=== PATIENT | male | born 1970 | race African-American/Black ===

== ENCOUNTER 2016-11-13 17:55 | Emergency (ER) | payer OTHER ==
[~2016-11-13] VITALS: Ht 172.7 cm; Wt 108.9 kg
[2016-11-13] MEDS ORDERED: KETOROLAC TROMETHAMINE INJ 60 MG/2 ML VIAL IM ONE (18:30)
[2016-11-13] MEDS ORDERED: CYCLOBENZAPRINE 10 MG TABLET PO ONE (18:30)
[2016-11-13] MEDS ORDERED: CYCLOBENZAPRINE 10 MG TABLET ONE (18:39)
[2016-11-13] MEDS ORDERED: KETOROLAC TROMETHAMINE INJ 30 MG/ML VIAL ONE (18:39)
[2016-11-13] MEDS ORDERED: AMLODIPINE BESYLATE 5 MG TABLET ONE (19:15)
[2016-11-13] MEDS ORDERED: AMLODIPINE BESYLATE 5 MG TABLET PO ONE (19:30)
[2016-11-13 20:38] VITALS: BP 152/90
== END 2016-11-13 20:41 ==
LOC: ER 17:59
DX: S16.1XXA Strain of muscle, fascia and tendon at neck level, initial encounter (principal); I10 Essential (primary) hypertension; X58.XXXA Exposure to other specified factors, initial encounter; Y92.89 Other specified places as the place of occurrence of the external cause; Y93.89 Activity, other specified; Y99.8 Other external cause status
CPT/HCPCS: 96372; 99283; A4606; J1885; Z7610

== ENCOUNTER 2021-05-17 23:56 | Emergency (ER) | payer OTHER ==
[~2021-05-17] VITALS: Ht 175.3 cm; Wt 70.3 kg
--- NOTE | 2021-05-18 00:05 | NUR ---
TO ER BED REQUESTING MEDICAL CLEARANCE FOR VOLUNTARY PSYCH ADMISSION. PT C/O SI WITHOUT PLAN. "I'M HEARING VOICES TELLING ME TO HURT MYSELF." PT AAOX4 NO ACUTE DISTRESS NOTED, RESP EVEN AND UNLABORED. PT CALM AND COOPERATIVE AT THIS TIME. PENDING ER MD TORRES.
--- NOTE | 2021-05-18 02:09 | NUR ---
URINE SAMPLE COLLECTED AND SENT TO LAB
--- NOTE | 2021-05-18 02:15 | NUR ---
BLOOD DRAWN BY ENVIRONMENTAL HEALTH AND SAFETY LEADER.
[2021-05-18 02:20] LABS: BILIRUBIN,URINE SMALL (NEGATIVE); COLOR,URINE YELLOW (YELLOW); LEUKOCYTE ESTERASE ,URINE Negative (NEGATIVE); NITRITE, URINE Negative (NEGATIVE); PH,URINE 5.5 (5.0-8.0); PROTEIN,URINE Trace mg/dl (NEGATIVE); UGLUCOSE Negative (NEGATIVE); UROBILINOGEN,URINE 0.2 EU/dL (0.2)
[2021-05-18 02:31] LABS: BACTERIA,URINE Few /HPF (None Seen); HYALINE CASTS, URINE Few /LPF (None Seen); MUCUS,URINE Few /LPF (None Seen); SQUAMOUS EPITHELIAL CELL,UR Few /HPF (None Seen); WBC,URINE 0-2 /HPF (0-3)
[2021-05-18 02:43] LABS: BASOPHILS % (AUTO) 0.8 % (0.0-2.0); EOSINOPHILS % (AUTO) 1.2 % (0.0-6.0); HEMATOCRIT 40 % (39-51); LYMPHOCYTES # (AUTO) 1.7 K/uL (0.8-4.8); LYMPHOCYTES % (AUTO) 30.6 % (20.0-44.0); MEAN CORPUSCULAR HGB CONC 33 g/dl (31.0-36.0); MEAN CORPUSCULAR VOLUME 81 fL (80-96); MONOCYTES # (AUTO) 0.5 K/uL (0.1-1.30); MONOCYTES % (AUTO) 8.1 % (2.0-12.0); NEUTROPHILS # (AUTO) 3.4 K/uL (1.8-8.9); NEUTROPHILS % (AUTO) 59.3 % (43.0-81.0); PLATELET COUNT (AUTO) 370 K/uL (150-450); RED BLOOD CELL COUNT(AUTO) 4.91 MIL/uL (4.5-6.0); WHITE BLOOD COUNT (AUTO) 5.7 K/uL (4.3-11.0)
[2021-05-18 02:51] LABS: ALANINE AMINOTRANSFERASE 24 U/L (12-78); ALBUMIN 3.9 g/dL (3.4-5.0); ALCOHOL, BLOOD < 3 mg/dL (0-0); ALKALINE PHOSPHATASE 77 U/L (46-116); ASPARTATE AMINOTRANSFERASE 26 U/L (15-37); BILIRUBIN,DIRECT 0.1 mg/dL (0.0-0.2); BILIRUBIN,TOTAL 0.3 mg/dL (0.2-1.0); CALCIUM, SERUM 9.5 mg/dL (8.5-10.1); CARBON DIOXIDE 29 mmol/L (21-32); CHLORIDE 104 mmol/L (98-107); CREATININE 1.5 mg/dL (0.6-1.3); GLUCOSE 96 mg/dL (74-106); POTASSIUM 4.4 mmol/L (3.5-5.1); SODIUM SERUM 143 mmol/L (136-145); UREA NITROGEN, BLOOD 24 mg/dL (7-18)
[2021-05-18 03:01] LABS: ACETAMINOPHEN < 2 ug/ml (10-30)
--- NOTE | 2021-05-18 04:06 | NUR ---
CLINICAL AND FACESHEET FAXED TO [facility] INTAKE FOR VOLUNTARY PSYCH ADMISSION.
--- NOTE | 2021-05-18 07:02 | NUR ---
PER ART FROM INTAKE AT [facility] PT IS ACCEPTED AND WILL CALL BACK FOR BED AND ACCEPTING MD AFTER 0800AM
--- NOTE | 2021-05-18 09:17 | NUR ---
CALLED [facility] FOR TRANSPORT TO [facility]. ETA 60 MINUTES.
--- NOTE | 2021-05-18 09:21 | NUR ---
JAKY FROM [facility] CALLED TO ASK IF WE CAN SENT PATIENT AFTER 11 AM. STATED TO JAKY THAT AMBULANCE WAS ENROUTE TO [employer] PATIENT BUT WILL BE HERE CLOSER TO 10 AM FOR PICKUP. PER JAKY OKAY TO ADMIT AT 10AM.
[2021-05-18 09:45] VITALS: BP 116/65
== END 2021-05-18 10:02 ==
LOC: ER 05-18 00:02
DX: F31.9 Bipolar disorder, unspecified (principal); R45.851 Suicidal ideations; Z59.0 Homelessness; H91.90 Unspecified hearing loss, unspecified ear; I10 Essential (primary) hypertension; Z82.49 Family history of ischemic heart disease and other diseases of the circulatory system; Z20.822 Contact with and (suspected) exposure to COVID-19; R79.89 Other specified abnormal findings of blood chemistry; F41.9 Anxiety disorder, unspecified
CPT/HCPCS: 36415; 80048; 80076; 80143; 80307; 80320; 81001; 85025; 87426; 99285; C9803; G0480

== ENCOUNTER 2021-06-20 19:58 | Emergency (ER) | payer OTHER ==
[~2021-06-20] VITALS: Ht 175.3 cm; Wt 72.6 kg
--- NOTE | 2021-06-20 20:19 | NUR ---
DEPRESSED, WANTS TO BE ADMITTED TO [facility]
--- NOTE | 2021-06-20 20:27 | NUR ---
LAB AT BEDSIDE
[2021-06-20] MEDS ORDERED: LORAZEPAM INJ 2 MG/ML VIAL IM ONE (20:30)
[2021-06-20] MEDS ORDERED: LORAZEPAM INJ 2 MG/ML VIAL ONE (20:34)
--- NOTE | 2021-06-20 20:40 | NUR ---
PT NOTED WITH RESTLESSNESS AND TALKING TO SELF
--- NOTE | 2021-06-20 20:52 | NUR ---
BP 194/112 HR 86 NOTIFIED LAW MD
--- NOTE | 2021-06-20 20:55 | NUR ---
ENCOURAGED PT TO URINATE TO COLLECT SAMPLE; NOT ABLE TO GO AT THIS MOMENT. WILL TRY AGAIN LATER
--- NOTE | 2021-06-20 21:02 | NUR ---
COVID SWAB COLELCTED AND SENT TO LAB
[2021-06-20 21:12] LABS: BASOPHILS # (AUTO) 0.1 K/uL (0.0-0.2); BASOPHILS % (AUTO) 1.1 % (0.0-2.0); EOSINOPHILS % (AUTO) 1.6 % (0.0-6.0); HEMATOCRIT 36 % (39-51); HEMOGLOBIN 11.5 g/dL (13.5-17.5); LYMPHOCYTES # (AUTO) 1.6 K/uL (0.8-4.8); LYMPHOCYTES % (AUTO) 30.9 % (20.0-44.0); MEAN CORPUSCULAR HGB CONC 32 g/dl (31.0-36.0); MEAN CORPUSCULAR VOLUME 81 fL (80-96); MONOCYTES # (AUTO) 0.4 K/uL (0.1-1.30); MONOCYTES % (AUTO) 8.8 % (2.0-12.0); NEUTROPHILS # (AUTO) 2.9 K/uL (1.8-8.9); NEUTROPHILS % (AUTO) 57.6 % (43.0-81.0); PLATELET COUNT (AUTO) 286 K/uL (150-450); RED BLOOD CELL COUNT(AUTO) 4.44 MIL/uL (4.5-6.0); WHITE BLOOD COUNT (AUTO) 5.1 K/uL (4.3-11.0)
[2021-06-20] MEDS ORDERED: CLONIDINE HCL 0.1 MG TABLET ONE (21:13)
[2021-06-20 21:24] LABS: CALCIUM, SERUM 8.6 mg/dL (8.5-10.1); CARBON DIOXIDE 31 mmol/L (21-32); CHLORIDE 105 mmol/L (98-107); CREATININE 0.9 mg/dL (0.6-1.3); GLUCOSE 84 mg/dL (74-106); POTASSIUM 3.7 mmol/L (3.5-5.1); SODIUM SERUM 140 mmol/L (136-145); UREA NITROGEN, BLOOD 14 mg/dL (7-18)
[2021-06-20 21:28] LABS: ALANINE AMINOTRANSFERASE 20 U/L (12-78); ALBUMIN 3.7 g/dL (3.4-5.0); ALKALINE PHOSPHATASE 73 U/L (46-116); ASPARTATE AMINOTRANSFERASE 24 U/L (15-37); BILIRUBIN,DIRECT 0.1 mg/dL (0.0-0.2); BILIRUBIN,TOTAL 0.4 mg/dL (0.2-1.0); TOTAL PROTEIN, SERUM 7.1 g/dL (6.4-8.2)
[2021-06-20 21:29] LABS: ALCOHOL, BLOOD < 10 mg/dL (0-0)
[2021-06-20] MEDS ORDERED: CLONIDINE HCL 0.1 MG TABLET PO ONE (21:30)
--- NOTE | 2021-06-20 22:18 | NUR ---
URINE SAMPLE COLLECTED AND SENT TO LAB
[2021-06-20 22:53] LABS: BILIRUBIN,URINE NEGATIVE (NEGATIVE); COLOR,URINE YELLOW (YELLOW); LEUKOCYTE ESTERASE ,URINE NEGATIVE (NEGATIVE); NITRITE, URINE NEGATIVE (NEGATIVE); PROTEIN,URINE NEGATIVE (NEGATIVE); UGLUCOSE NEGATIVE (NEGATIVE); UROBILINOGEN,URINE 0.2 EU/dL (0.2)
[2021-06-20 23:34] LABS: BACTERIA,URINE None seen /HPF (None Seen); RBC,URINE 0-2 /HPF (0-2); SQUAMOUS EPITHELIAL CELL,UR Few /HPF (None Seen); URINE AMORPHOUS PHOSPHATES Many /HPF (None Seen); WBC,URINE 0-2 /HPF (0-3)
--- NOTE | 2021-06-21 07:51 | NUR ---
ASSESSED PT ON BED AWAKE AND ALERT, NOT IN RESPIRATORY DISTRESS, V/S STABLE, KEPT RESTED AND COMFORTABLE. WILL CONTINUE TO MONITOR.
--- NOTE | 2021-06-21 10:30 | NUR ---
"SS note SS requested for pt with complaints of feeling depressed and requesting voluntary psychiatric admission. Pt is a 51-year-old, male. Per chart, pt is homeless. SW met with pt at his bedside in the emergency department. Pt was unarousable. Pt appeared appropriately dressed and well-groomed. SW notified RN Rosalina and was instructed to file homeless resources and homeless waiver in the pt's chart. PLAN: Per pt request for voluntary psychiatric admission, [facility] faxed clinicals to [facility], , for review. SW will remain available as needed. RESOURCES FILED: Year-round shelters: [facility] [place] [address] [place] [address] ; [facility] [place] [address] [place] [address]; [facility] [id number] [facility] [address] SPA 4 | [facility] Provider: [facility] Serve Address: [address], [address] # of Beds: 48 Population Served: [facility] Provider: First to Serve Address: [address] [facility], [address] # of Beds: 73 Population Served: [facility] 6 | [facility] Provider: [facility] Address: [address] [place] [address], [address] # of Beds: 63 Population Served: [facility] 3 | [facility] Provider: [facility] [place] Address: [address] [place] [address], [address] # of Beds: 75 Population Served: [facility] SPA 8 | [facility] Provider: [facility] [place] Address: [address] [facility], [address] # of Beds: 80 Population Served: [facility] SPA 1 | [facility] Provider: [facility] [place] [place] Address: [address] [place] [address], [address] # of Beds: 85 Population Served: [facility] SPA 2 | [facility] Provider: Ondina Julian Address: Confidential (please call for location) # of Beds: 52 Population Served: [facility] 4 | [facility] Provider: Mayank Donnelly Address: [address] [facility] [facility], [address] # of Beds: 49 Population Served: [facility] Provider: First To Serve Address: [address] [place] [address], [address] # of Beds: 27 Population Served: [facility] Hygiene: [facility]: [address] [facility] ; [facility] [address] [facility] ; [facility] [address] [place] . Food Resources: [place] [facility] at [facility]- [address] [facility]; Meet Each Need with Dignity ([facility]) [address] [facility]; [facility] Food Pantry [address] [facility]; [facility] [address] [facility]. Mental Health resources provided: [facility] [address] [place], [place] [id number] ; [facility] [address] [facility] [address], [place] [address] ; Azra [facility]ung [facility] [address] [address] [place], [place] [id number] ; [facility] [address] [place], [place] [phone] Healthcare Clinics: [facility] [address] [facility], [address] [place]. [place] ; [facility] [address] [facility] [address] [place] [address]; [facility] [address] [facility]. [place] [address] [phone] Counseling--Outpatient [facility] [address] [facility] [address] [place], [place] [address] (Specializes in in-depth psychotherapy for emotional distress: anxiety, depression, interpersonal conflicts, life transitions, childhood abuse) PSYCHIATRIC OUTPATIENT SERVICES [facility] Partial Hospitalization and Intensive Outpatient Program (Managed Care and [place] Only) [address] [facility] [address] [facility] Partial Hospitalization and Outpatient Program [address] [place] [address] [facility] Partial Hospitalization and Outpatient Program [address] [place], [place] [id number] [facility] [address] [facility] [address] [place], [place] [phone] [facility] Partial Hospitalization and Outpatient Program [address] [place], [place] [phone] Substance use resources provided included: [facility] Substance Abuse Self-Helpline ([facility]) ; [facility] [address] [facility]. [place] [address] ; [facility] [address] [facility] [address] ; [facility] [address] [facility] [address] ; [facility] [address] [facility] [address] ; [facility] [address] [facility] [address] ; [facility] [place]; [facility] [place]; [facility] [place]; Alcoholics Anonymous -[facility]"
--- NOTE | 2021-06-21 11:28 | NUR ---
THE PATIENT IS SLEEPING IN ER BED #11. EASILY REPSONSIVE TO VERBAL STIMULI. BREATHING EVEN AND UNLABORED. WILL CONTINUE TO MONITOR THE PATIENT.
--- NOTE | 2021-06-21 12:38 | NUR ---
THE PATIENT IS HAVING LUNCH. ABLE TO FEED SELF. TOLERATED PROVIDED MEAL WELL.
--- NOTE | 2021-06-21 12:40 | NUR ---
THE PATIENT IS ALERT AND ORIENTED X4. DENIES PAIN. IN ROOM AIR AND DENIES SOB. RESPIRATION REGULAR AND UNLABORED. THE PATIENT DENIES HAVING SI/HI. THE PATIENT REQUESTING DISCHARGE.
--- NOTE | 2021-06-21 12:42 | NUR ---
Dennise bain in [facility] - 06/21/21 at 1318 by BAILEY CALLED [facility] TO FOLLOW UP FOR PT. PT WAS DENIED A BED DUE TO BEING A HIGH RISK PT.
--- NOTE | 2021-06-21 13:50 | NUR ---
SS note SS requested for homelessness. Pt is a 51-year-old, male. Pt is alert and oriented x4. Pt presents irritable. SW met with pt at his bedside in the emergency department. Per chart, pt was denied by [facility] for psychiatric admission. SW discussed D/C plans with the pt. Pt plans to be D/C to his prior living arrangement on the street. Pt stated that he is able to use public transportation independently and was provided with a TAP card. SW offered the pt homeless resources. Pt accepted the resources. Pt refused to sign the homeless waiver, and SW filed waiver in the pt's chart. No further SS intervention at this time, however, SW will remain available as needed.
[2021-06-21 13:59] VITALS: BP 139/84
== END 2021-06-21 13:59 | disposition home or self-care (01) ==
LOC: ER 20:04
DX: F31.30 Bipolar disorder, current episode depressed, mild or moderate severity, unspecified (principal); Z59.0 Homelessness; I10 Essential (primary) hypertension; H91.90 Unspecified hearing loss, unspecified ear; F41.9 Anxiety disorder, unspecified; Z20.822 Contact with and (suspected) exposure to COVID-19
CPT/HCPCS: 36415; 80048; 80076; 80143; 80307; 80320; 81001; 85025; 87426; 96372; 99285; C9803; J2060; G0480

== ENCOUNTER 2021-06-27 07:58 | Emergency (ER) | payer OTHER ==
[~2021-06-27] VITALS: Ht 172.7 cm; Wt 90.3 kg
--- NOTE | 2021-06-27 08:35 | NUR ---
THE PATIENT BIBS FOR FEELING DEPRESSED, SUICIDAL, JUMP IN THE FREEWAY. REQUESTING VOL PSYCH ADMIT TO [facility]. DENIES PAIN. IN ROOM AIR AND DENIES SOB. RESPIRATION REGULAR AND UNLABORED. WILL CONTINUE TO MONITOR THE PATIENT.
[2021-06-27 09:10] LABS: BILIRUBIN,URINE NEGATIVE (NEGATIVE); COLOR,URINE YELLOW (YELLOW); LEUKOCYTE ESTERASE ,URINE NEGATIVE (NEGATIVE); NITRITE, URINE NEGATIVE (NEGATIVE); PROTEIN,URINE NEGATIVE (NEGATIVE); UGLUCOSE NEGATIVE (NEGATIVE); UROBILINOGEN,URINE 0.2 EU/dL (0.2)
[2021-06-27 09:31] LABS: BASOPHILS # (AUTO) 0.1 K/uL (0.0-0.2); HEMATOCRIT 35 % (39-51); LYMPHOCYTES # (AUTO) 1.4 K/uL (0.8-4.8); LYMPHOCYTES % (AUTO) 19.5 % (20.0-44.0); MEAN CORPUSCULAR HGB CONC 32 g/dl (31.0-36.0); MEAN CORPUSCULAR VOLUME 83 fL (80-96); MONOCYTES # (AUTO) 0.8 K/uL (0.1-1.30); MONOCYTES % (AUTO) 10.9 % (2.0-12.0); NEUTROPHILS # (AUTO) 4.7 K/uL (1.8-8.9); NEUTROPHILS % (AUTO) 65.6 % (43.0-81.0); PLATELET COUNT (AUTO) 258 K/uL (150-450); RED BLOOD CELL COUNT(AUTO) 4.19 MIL/uL (4.5-6.0); WHITE BLOOD COUNT (AUTO) 7.1 K/uL (4.3-11.0)
[2021-06-27 09:49] LABS: CARBON DIOXIDE 29 mmol/L (21-32); CHLORIDE 109 mmol/L (98-107); GLUCOSE 123 mg/dL (74-106); POTASSIUM 3.8 mmol/L (3.5-5.1); SODIUM SERUM 144 mmol/L (136-145); UREA NITROGEN, BLOOD 13 mg/dL (7-18)
[2021-06-27 09:56] LABS: ALANINE AMINOTRANSFERASE 20 U/L (12-78); ALBUMIN 3.1 g/dL (3.4-5.0); ALKALINE PHOSPHATASE 104 U/L (46-116); ASPARTATE AMINOTRANSFERASE 17 U/L (15-37); BILIRUBIN,DIRECT 0.1 mg/dL (0.0-0.2); BILIRUBIN,TOTAL 0.2 mg/dL (0.2-1.0); TOTAL PROTEIN, SERUM 6.3 g/dL (6.4-8.2)
[2021-06-27 09:57] LABS: ACETAMINOPHEN 0 ug/ml (10-30); ALCOHOL, BLOOD < 3 mg/dL (0-0)
--- NOTE | 2021-06-27 11:34 | NUR ---
FAXED CLINICALS TO [facility] INTAKE.
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
--- NOTE | 2021-06-28 00:18 | NUR ---
[place] [facility]IS[facility] TEAM AT BEDSIDE FOR EVAL.
--- NOTE | 2021-06-28 00:31 | NUR ---
PT CLEARED BY ARTURO
[2021-06-28 06:05] VITALS: BP 138/88
--- NOTE | 2021-06-28 06:05 | NUR ---
Patient discharged to home in stable condition. Written and verbal after care instructions given. Patient verbalizes understanding of instruction.
== END 2021-06-28 06:06 | disposition home or self-care (01) ==
LOC: ER 08:06
DX: R45.851 Suicidal ideations (principal); Z59.00 Homelessness unspecified; F31.9 Bipolar disorder, unspecified; I10 Essential (primary) hypertension; Z20.822 Contact with and (suspected) exposure to COVID-19
CPT/HCPCS: 36415; 80048; 80076; 80143; 80307; 80320; 81003; 85025; 87426; 99285; C9803; G0480

== ENCOUNTER 2022-02-12 08:06 | Emergency (ER) | payer OTHER ==
[~2022-02-12] VITALS: Ht 175.3 cm; Wt 74.8 kg
--- NOTE | 2022-02-12 08:06 | NUR ---
PT BIB SELF C/O SI NO SPECIFIC PLAN. REQUESTING VOLUNTARY PSYCH ADMISSION TO [facility]. PT IS AAOX4, NOT IN RESPIRATORY DISTRESS, HOOKED TO V/S MONITOR, KEPT RESTED AND COMFORTABLE. SITTER AT BEDSIDE, WILL CONTINUE TO MONITOR.
--- NOTE | 2022-02-12 08:15 | NUR ---
URINE SPECIMEN COLLECTED AND SENT TO LAB.
--- NOTE | 2022-02-12 08:22 | NUR ---
SEEN AND EXAMINED BY .
--- NOTE | 2022-02-12 08:25 | NUR ---
ER PHLEB AT BEDSIDE FOR BLOOD DRAW.
--- NOTE | 2022-02-12 08:26 | NUR ---
COVID SPECIMEN COLLECTED AND SENT TO LAB.
[2022-02-12] MEDS ORDERED: AMLODIPINE BESYLATE 10 MG TABLET ONE (08:29)
[2022-02-12] MEDS ORDERED: AMLODIPINE BESYLATE 5 MG TABLET PO ONE (08:30)
[2022-02-12 08:37] LABS: BASOPHILS # (AUTO) 0.1 K/uL (0.0-0.2); BASOPHILS % (AUTO) 1.1 % (0.0-2.0); EOSINOPHILS % (AUTO) 1.5 % (0.0-6.0); HEMATOCRIT 37 % (39-51); HEMOGLOBIN 11.9 g/dL (13.5-17.5); LYMPHOCYTES # (AUTO) 1.4 K/uL (0.8-4.8); LYMPHOCYTES % (AUTO) 29.9 % (20.0-44.0); MEAN CORPUSCULAR HGB CONC 32 g/dl (31.0-36.0); MEAN CORPUSCULAR VOLUME 80 fL (80-96); MONOCYTES # (AUTO) 0.4 K/uL (0.1-1.30); MONOCYTES % (AUTO) 8.1 % (2.0-12.0); NEUTROPHILS # (AUTO) 2.9 K/uL (1.8-8.9); NEUTROPHILS % (AUTO) 59.4 % (43.0-81.0); PLATELET COUNT (AUTO) 328 K/uL (150-450); RED BLOOD CELL COUNT(AUTO) 4.65 MIL/uL (4.5-6.0); WHITE BLOOD COUNT (AUTO) 4.8 K/uL (4.3-11.0)
[2022-02-12 08:46] LABS: BILIRUBIN,URINE NEGATIVE (NEGATIVE); COLOR,URINE YELLOW (YELLOW); LEUKOCYTE ESTERASE ,URINE NEGATIVE (NEGATIVE); NITRITE, URINE NEGATIVE (NEGATIVE); PROTEIN,URINE NEGATIVE (NEGATIVE); UGLUCOSE NEGATIVE (NEGATIVE); UROBILINOGEN,URINE 0.2 EU/dL (0.2)
[2022-02-12 09:03] LABS: ALANINE AMINOTRANSFERASE 31 U/L (12-78); ALBUMIN 3.7 g/dL (3.4-5.0); ALKALINE PHOSPHATASE 79 U/L (46-116); ASPARTATE AMINOTRANSFERASE 29 U/L (15-37); BILIRUBIN,DIRECT 0.1 mg/dL (0.0-0.2); BILIRUBIN,TOTAL 0.3 mg/dL (0.2-1.0); CALCIUM, SERUM 8.9 mg/dL (8.5-10.1); CARBON DIOXIDE 30 mmol/L (21-32); CHLORIDE 104 mmol/L (98-107); CREATININE 1.1 mg/dL (0.6-1.3); GLUCOSE 103 mg/dL (74-106); POTASSIUM 3.3 mmol/L (3.5-5.1); SODIUM SERUM 140 mmol/L (136-145); TOTAL PROTEIN, SERUM 7.4 g/dL (6.4-8.2); UREA NITROGEN, BLOOD 8 mg/dL (7-18)
[2022-02-12 09:21] LABS: ACETAMINOPHEN < 10 ug/ml (10-30); ALCOHOL, BLOOD < 3 mg/dL (0-0)
[2022-02-12] MEDS ORDERED: POTASSIUM CHLORIDE 20 MEQ TAB.PRT.SR PO ONE ×2 (09:57→10:00)
--- NOTE | 2022-02-12 11:50 | NUR ---
LUNCH TRAY SERVED
--- NOTE | 2022-02-12 11:50 | NUR ---
MADE MD AWARE OF ELEVATED BLOOD PRESSURE
[2022-02-12] MEDS ORDERED: CLONIDINE HCL 0.1 MG TABLET PO ONE (12:00)
[2022-02-12] MEDS ORDERED: CLONIDINE HCL 0.1 MG TABLET ONE (12:10)
--- NOTE | 2022-02-12 12:21 | NUR ---
PATIENT STATES HE'S NOT SUICIDAL ANYMORE. DECIDED TO LEAVE. MADE DR ARNOLD AWARE
--- NOTE | 2022-02-12 12:23 | NUR ---
Patient does not wish to proceed with medical care recommended by Dr. Justice. Patient given information related to possible complications, up to and including , which could occur as a result of leaving the hospital at this time. Patient verbalizes understanding of risks involved due to leaving against medical advice. Patient refused to sign AMA form. In proper clothing upon discharge. All belongings given back to patient. Name band removed.
[2022-02-12 12:25] VITALS: BP 182/97
== END 2022-02-12 12:26 | disposition left against medical advice (07) ==
LOC: ER 08:13
DX: R45.851 Suicidal ideations (principal); Z53.29 Procedure and treatment not carried out because of patient's decision for other reasons; F15.90 Other stimulant use, unspecified, uncomplicated; I10 Essential (primary) hypertension; Z59.00 Homelessness unspecified; Z20.822 Contact with and (suspected) exposure to COVID-19; F31.9 Bipolar disorder, unspecified; H91.90 Unspecified hearing loss, unspecified ear
CPT/HCPCS: 36415; 80048; 80076; 80143; 80307; 80320; 81003; 85025; 87426; 99285; C9803; G0480

== ENCOUNTER 2022-06-16 08:18 | Inpatient (IN) | payer OTHER ==
[~2022-06-16] VITALS: Ht 172.7 cm; Wt 72.6 kg
--- NOTE | 2022-06-16 08:26 | NUR ---
pt self presents to ed c/o suicial ideation and is requesting [facility]. 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 also c/o r groin area pain and swelling. stable vitals. awaiting md syed.
--- NOTE | 2022-06-16 08:38 | NUR ---
Dennise bain in [facility] - 06/16/22 at 0919 by BERE iv line started blood drawn and sent to lab.
--- NOTE | 2022-06-16 08:38 | NUR ---
dr johnston at bedside for eval.
[2022-06-16] MEDS ORDERED: ACETAMINOPHEN ES 500 MG TABLET PO ONE (09:00)
--- NOTE | 2022-06-16 09:05 | NUR ---
iv line started blood drawn and sent to lab.
[2022-06-16 09:24] LABS: BASOPHILS % (AUTO) 0.8 % (0.0-2.0); HEMATOCRIT 40 % (39-51); HEMOGLOBIN 12.7 g/dL (13.5-17.5); LYMPHOCYTES # (AUTO) 1.3 K/uL (0.8-4.8); LYMPHOCYTES % (AUTO) 21.5 % (20.0-44.0); MEAN CORPUSCULAR HGB CONC 32 g/dl (31.0-36.0); MEAN CORPUSCULAR VOLUME 79 fL (80-96); MONOCYTES # (AUTO) 0.6 K/uL (0.1-1.30); MONOCYTES % (AUTO) 10.8 % (2.0-12.0); NEUTROPHILS # (AUTO) 3.9 K/uL (1.8-8.9); NEUTROPHILS % (AUTO) 65.9 % (43.0-81.0); PLATELET COUNT (AUTO) 351 K/uL (150-450); RED BLOOD CELL COUNT(AUTO) 5.04 MIL/uL (4.5-6.0)
[2022-06-16] MEDS ORDERED: ACETAMINOPHEN ES 500 MG TABLET ONE (09:30)
--- NOTE | 2022-06-16 09:36 | NUR ---
URINE COLLECTED AND COVID SWAB DONE AND SENT TO LAB
[2022-06-16 09:42] LABS: CALCIUM, SERUM 9.7 mg/dL (8.5-10.1); CARBON DIOXIDE 33 mmol/L (21-32); CHLORIDE 92 mmol/L (98-107); CREATININE 1.7 mg/dL (0.6-1.3); GLUCOSE 118 mg/dL (74-106); SODIUM SERUM 134 mmol/L (136-145); UREA NITROGEN, BLOOD 26 mg/dL (7-18)
[2022-06-16 09:48] LABS: ACETAMINOPHEN < 10 ug/ml (10-30); ALANINE AMINOTRANSFERASE 24 U/L (12-78); ALCOHOL, BLOOD < 3 mg/dL (0-0); ALKALINE PHOSPHATASE 73 U/L (46-116); ASPARTATE AMINOTRANSFERASE 29 U/L (15-37); BILIRUBIN,DIRECT 0.1 mg/dL (0.0-0.2); BILIRUBIN,TOTAL 0.5 mg/dL (0.2-1.0); TOTAL PROTEIN, SERUM 8.2 g/dL (6.4-8.2)
[2022-06-16] MEDS ORDERED: IOHEXOL-300 100 ML VIAL IV ONE (09:50)
[2022-06-16] MEDS ORDERED: CT SWABBABLE VALVE TRANS SET 1 EA INFUS.SET MC ONE (09:50)
[2022-06-16] MEDS ORDERED: IV NS 0.9% 250 ML IV ONE (09:50)
--- NOTE | 2022-06-16 09:55 | NUR ---
pt to radiology for abdominal ct scan via wheelchair.
[2022-06-16 10:03] LABS: BILIRUBIN,URINE NEGATIVE (NEGATIVE); COLOR,URINE YELLOW (YELLOW); LEUKOCYTE ESTERASE ,URINE NEGATIVE (NEGATIVE); NITRITE, URINE NEGATIVE (NEGATIVE); PROTEIN,URINE NEGATIVE (NEGATIVE); UGLUCOSE NEGATIVE (NEGATIVE); UROBILINOGEN,URINE 0.2 EU/dL (0.2)
--- NOTE | 2022-06-16 11:20 | NUR ---
MOVE SHEET SUBMITTED.
[2022-06-16] MEDS ORDERED: POTASSIUM CHLORIDE 20 MEQ TAB.PRT.SR PO ONE ×2 (11:30)
[2022-06-16] MEDS ORDERED: IV NS 0.9% 500 ML BAG IV ONE (11:30)
[2022-06-16 11:37] VITALS: BP 118/93
[2022-06-16] MEDS ORDERED: AMLO-213 PO (12:15)
[2022-06-16] MEDS ORDERED: QUET300T2 PO (12:15)
--- NOTE | 2022-06-16 12:43 | NUR ---
SANDY FROM [facility] CALLED [phone] X [phone] OK TO STAY
--- NOTE | 2022-06-16 12:46 | NUR ---
DR. HOLLOWAY SPEAKING WITH TANA MCMANUS.
--- NOTE | 2022-06-16 13:40 | NUR ---
[facility] CALLED GRADE TAMPER PAGED.
[2022-06-16] MEDS ORDERED: LORAZEPAM INJ 2 MG/ML VIAL IV PRN (14:30)
[2022-06-16] MEDS ORDERED: MORPHINE SULFATE INJ 2 MG/ML DISP.SYRIN IV PRN (14:30)
[2022-06-16] MEDS ORDERED: ONDANSETRON HCL/PF 4 MG/2 ML VIAL IVP PRN (14:30)
[2022-06-16] MEDS ORDERED: Z GUARD REMEDY 4 OZ OINT TP PRN (14:30)
[2022-06-16] MEDS ORDERED: IV D5/0.45 NACL 1,000 ML IV PRN (14:30)
[2022-06-16] MEDS ORDERED: PANTOPRAZOLE 40 MG VIAL IV SCH (14:30)
--- NOTE | 2022-06-16 15:36 | NUR ---
bed assigned 321. m/s
--- NOTE | 2022-06-16 16:00 | NUR ---
RN NOTE-PT IN FROM ER BIPOLAR AND DEPRESSION. FOUND TO HAVE HERNIA. SENT TO MS FOR EVAL. PT OPPOSES CARE, VS AND INTERACTION. REFUSES SKIN ASSESSMENT WELL. ADMIT
--- NOTE | 2022-06-16 16:01 | NUR ---
PRESSER COTTON GINNING NOTE 52 YEAR OLD MALE, ADMITTED TO MEDICAL FLOOR FOR INGUINAL HERNIA REPAIR. PATIENT CAME TO ER FOR MEDICAL CLEARANCE FOR PSYCHE EVAL, BIPOLAR, AND SUICIDAL IDEATION. PATIENT CURRENTLY DENIES ACTIVE S.I MEDICAL HISTORY: BIPOLAR, SUBSTANCE ABUSE, HYPERTENSION AND HOMELESSNESS. PATIENT HAS NO KNOWN ALLERGIES, FULL CODE, AND COVID NEGATIVE. PATIENT IS HARD OF HEARING, ALERT/ORIENTED TO PERSON AND PLACE. PATIENT REFUSED VITAL SIGNS AND SKIN ASSESSMENT AND WAS OPPOSITIONAL TO CARE. PATIENT IS AMBULATORY, USES BATHROOM, AND IS NPO FOR INGUINAL HERNIA REPAIR IN AM. CONSENTS FILLED OUT, BUT UNSIGNED. CBC, BMP, MAG, PHOS IN MORNING. D5 HALF NORMAL SALINE @ 75/HR TO RAC. SIDE RAILS UP, BED LOCKED, CALL LIGHT IN REACH, MONITOR AND ASSIST.
--- NOTE | 2022-06-16 18:44 | NUR ---
RN NOTE- PT PSYCHOTIC, PULLED OUT IV, NOT DIRECTABLE, LEFT HOSPITAL AMA. SECURITY CALLED. REMOVED ID BAND AND OTHER HEP LOCK. PT GESTURING WILDLY AND OUT OF CONTROL. ESCORTED OUT OF HOSPITAL BY SECURITY. NOTIFIED
--- NOTE | 2022-06-17 16:31 | NUR ---
SW unable to see pt. as he left AMA 06/16.
== END 2022-06-16 18:45 | disposition left against medical advice (07) | DRG 254 ==
LOC: ER 08:22 → TRANSITION 15:07 → MED 15:42
PROVIDERS: ADMIT Nurse Practitioner Acute Care; ATTEND Nurse Practitioner Acute Care
DX: K40.30 Unilateral inguinal hernia, with obstruction, without gangrene, not specified as recurrent (principal); N17.0 Acute kidney failure with tubular necrosis; E87.1 Hypo-osmolality and hyponatremia; E87.6 Hypokalemia; F31.9 Bipolar disorder, unspecified; Z59.00 Homelessness unspecified; H91.90 Unspecified hearing loss, unspecified ear; F17.210 Nicotine dependence, cigarettes, uncomplicated; F15.10 Other stimulant abuse, uncomplicated; F12.10 Cannabis abuse, uncomplicated; I10 Essential (primary) hypertension; Z20.822 Contact with and (suspected) exposure to COVID-19
CPT/HCPCS: 36415; 80048-TC; 80076-TC; 83605-TC; 85025-TC; 87081-TC; C9803; G0378; G0480; J3490; J7040; J7050; Q9967